=== PATIENT | male | born 1965 | race Caucasian/White ===

== ENCOUNTER 2023-02-26 15:48 | Emergency (ER) | payer OTHER ==
[2023-02-26] MEDS ORDERED: Bacitracin Oint 1 GM U/D Packet TOP ONE (16:00)
[2023-02-26] MEDS ORDERED: Lidocaine 1% 30 ML SDV INFILT ONE (16:00)
== END 2023-02-26 16:50 | disposition home or self-care (01) ==
LOC: LB.ED 15:48
DX: S61.211A Laceration without foreign body of left index finger without damage to nail, initial encounter (principal); W26.8XXA Contact with other sharp object(s), not elsewhere classified, initial encounter
CPT/HCPCS: 12001; 99282